=== PATIENT | female | born 1945 | race Caucasian/White ===

== ENCOUNTER → 2022-03-15 | Outpatient (CLI) | payer MEDICARE | LOC: COL.RAD 08:00 | DX: R91.8 Other nonspecific abnormal finding of lung field (principal); R59.0 Localized enlarged lymph nodes; K44.9 Diaphragmatic hernia without obstruction or gangrene ==

== ENCOUNTER → 2022-04-13 | Outpatient (CLI) | payer MEDICARE, OTHER ==
[~2022-04-13] VITALS: Ht 162.6 cm; Wt 84.1 kg
[~2022-04-13] MED LIST: MULTI VITAMINS1 TAB PO; VITAMIN D31000 I1 PO
[2022-04-13 12:31] VITALS: BP 189/78; PULSE 57; TEMP 97.5
[2022-04-13 13:20] VITALS: BP 182/79; PULSE 63
== END ==
LOC: COL.RAD 12:00
DX: R59.0 Localized enlarged lymph nodes (principal)
CPT/HCPCS: 32108

== ENCOUNTER 2022-11-01 12:51 | Day surgery (SDC) | payer MEDICARE, OTHER ==
[~2022-11-01] VITALS: Ht 162.6 cm; Wt 74.5 kg
[~2022-11-01 12:51] MED LIST changes: +ULTRAM 50MG TAB50 MG PO
[2022-11-01 14:25] VITALS: BP 161/58; PULSE 59; TEMP 97.7
[2022-11-01 16:07] VITALS: BP 130/63; PULSE 67; TEMP 97.6
[2022-11-01 16:32] VITALS: BP 158/85; PULSE 56
[2022-11-01 16:47] VITALS: BP 162/67; PULSE 52
[2022-11-01 17:00] VITALS: BP 148/68; PULSE 56
--- NOTE | 2022-11-01 17:05 | NUR ---
1607 RETURNS TO ROOM 4 PER CART. DROWSY, AROUSES EASILY TO VERBAL STIMULI. RESP CLEAR, SPONTANEOUS. HOB ELEVATED 40 DEGREES. VITAL SIGNS OBTAINED. DRESSING AND BANDAID RIGHT CHEST CLEAN DRY AND INTACT. DENIES PAIN. AND SON IN ROOM. CALL LIGHT AT SIDE. 1620 AWAKE, ALERT. CONVERSES APPROPIATELY. 1635 TOLERATES PO JUICE WITHOUT NAUSEA 1645 DISCHARGE INSTRUCTIONS REVIEWED. PATIENT VERBALIZES UNDERSTANDING. COPY PROVIDED IN DISCHARGE FOLDER. 1655 SITS ON EDGE OF CART. DRESSES SELF. IN ROOM
== END 2022-11-01 17:05 | disposition home or self-care (01) ==
LOC: SDCO 12:51
DX: C85.14 Unspecified B-cell lymphoma, lymph nodes of axilla and upper limb (principal); Z85.038 Personal history of other malignant neoplasm of large intestine; Z28.310 Unvaccinated for COVID-19; Z28.9 Immunization not carried out for unspecified reason; Z90.49 Acquired absence of other specified parts of digestive tract
CPT/HCPCS: C1788; J0690; J1644; J2704

== ENCOUNTER → 2022-11-02 | Outpatient (CLI) | payer MEDICARE, OTHER | LOC: COL.VAS 12:55 | DX: C82.24 Follicular lymphoma grade III, unspecified, lymph nodes of axilla and upper limb (principal) ==